=== PATIENT | male | born 1960 | race Caucasian/White ===

== ENCOUNTER → 2017-10-12 | Outpatient (CLI) | payer OTHER ==
--- NOTE | 2017-10-12 11:06 | DIAGNOSTIC IMAGING REPORT ---
BRAIN WITHOUT CONTRAST HISTORY: Mental status change POOR BALANCE,DIZZINESS,HEADACHES TECHNIQUE: Multiplanar multisequence MRI of the brain was performed without the use of contrast. COMPARISON STUDY: None. FINDINGS: There are no areas of restricted diffusion to suggest acute infarction. The midline structures are intact. The paranasal sinuses are clear. The mastoid air cells are clear. The ventricles and sulci are within normal limits for age. There is no mass, hematoma, midline shift. The major vascular flow-voids at the skull base are well maintained. IMPRESSION: No acute intracranial abnormality. The above report was generated using voice recognition software. It may contain grammatical, syntax or spelling errors. Electronically signed by: Frank Calero M.D. 10/12/2017 11:04 AM Dictated Date/Time: 10/12/2017 11:03 AM
== END | disposition home or self-care (01) ==
LOC: C.MRI 10:24
PROVIDERS: ATTEND Nurse Practitioner Family
DX: G47.9 Sleep disorder, unspecified (principal); R51 Headache; R42 Dizziness and giddiness; R26.89 Other abnormalities of gait and mobility